=== PATIENT | male | born 1935 | race Two or more races ===

== ENCOUNTER 2017-03-01 19:22 | Inpatient (IN) | payer MEDICARE, MEDICAID ==
[~2017-03-01] VITALS: Ht 170.2 cm; Wt 92.1 kg
--- NOTE | 2017-03-01 19:24 | NUR ---
to bed 3 bib paramedics c/o sob, cough and congestion x10 days. lung sounds deminished with wheezing bilaterally on auscultation. pt aaox4, skin warm nondiaphoretic. place pt on cardiac monitoring, continuous pox, noted o2 sat 82% on ra, place pt on o2@4L/nc. er md at bedside to eval pt with orders received. will carry out orders. sl 18g to L forearm captain fire prevention bureau.
[2017-03-01] MEDS ORDERED: Magnesium 1GM/D5W 100ML PREMIX 200 ML IV ONE ×2 (19:26→19:39)
[2017-03-01] MEDS ORDERED: IPRATROPIUM NEB FS 0.5 MG/2.5 ML AMPUL.NEB ONE (19:26)
[2017-03-01] MEDS ORDERED: ALBUTEROL FS 2.5 MG/3 ML VIAL.NEB ONE (19:26)
--- NOTE | 2017-03-01 19:29 | NUR ---
rt at bedside to give hhn tx.
[2017-03-01] MEDS ORDERED: ALBUTEROL FS 2.5 MG/3 ML VIAL.NEB CONTNEB ONE (19:30)
[2017-03-01] MEDS ORDERED: IPRATROPIUM NEB FS 0.5 MG/2.5 ML AMPUL.NEB NEB ONE (19:30)
[2017-03-01] MEDS ORDERED: DEXAMETHASONE SOD PHOSPHATE 10 MG/ML VIAL IV ONE (19:30)
[2017-03-01] MEDS ORDERED: SECONDARY IV SET 1 EA INFUS.SET MC ONE (19:39)
[2017-03-01] MEDS ORDERED: DEXAMETHASONE SOD PHOSPHATE 10 MG/ML VIAL ONE (19:39)
[2017-03-01] MEDS ORDERED: IV SET PRIMARY 1 EA INFUS.SET MC ONE ×2 (19:39→20:35)
[2017-03-01 19:50] LABS: BASOPHILS # (AUTO) 0.7 /CMM (0.0-0.2); BASOPHILS % (AUTO) 3.7 % (0.0-2.0); EOSINOPHILS # (AUTO) 0.1 /CMM (0.0-0.7); EOSINOPHILS % (AUTO) 0.3 % (0.0-6.0); HEMATOCRIT 40 % (39-51); HEMOGLOBIN 13.2 g/dL (13.5-17.5); LYMPHOCYTES # (AUTO) 1.6 /CMM (0.8-4.8); LYMPHOCYTES % (AUTO) 8.9 % (20.0-44.0); MEAN CORPUSCULAR HEMOGLOBIN 28 PG (26.0-33.0); MEAN CORPUSCULAR HGB CONC 33 g/dl (31.0-36.0); MEAN CORPUSCULAR VOLUME 85 fL (80-96); MONOCYTES # (AUTO) 1.7 /CMM (0.1-1.30); NEUTROPHILS # (AUTO) 14.4 /CMM (1.8-8.9); NEUTROPHILS % (AUTO) 78.1 % (43.0-81.0); PLATELET COUNT (AUTO) 193 /CMM (150-450); RDW COEFFICIENT OF VARIATION 14.2 (11.5-15.0); RED BLOOD CELL COUNT(AUTO) 4.76 MIL/uL (4.5-6.0); WHITE BLOOD COUNT (AUTO) 18.5 K/uL (4.3-11.0)
[2017-03-01 19:51] LABS: CALCIUM, SERUM 8.9 mg/dL (8.5-10.1); CREATININE 0.9 mg/dL (0.6-1.3); POTASSIUM 4.1 mmol/L (3.5-5.1)
--- NOTE | 2017-03-01 19:54 | NUR ---
film processing supervisor magdy called for tele bed.
[2017-03-01 19:59] LABS: TROPONIN I 0.049 ng/mL (0.00-0.056)
--- NOTE | 2017-03-01 20:01 | NUR ---
pt family member at bedside.
[2017-03-01 20:11] LABS: LACTIC ACID 0.5 mmol/L (0.4-2.0)
--- NOTE | 2017-03-01 20:33 | NUR ---
pt pulled out piv, restarted on the L ac 18g.
[2017-03-01] MEDS ORDERED: PIPERACILLIN /TAZOBACTAM 3.375 G VIAL IV ONE (20:35)
--- NOTE | 2017-03-01 20:35 | NUR ---
report lucia to tele 1 zaid orourke. pending hospital admission.
--- NOTE | 2017-03-01 20:40 | NUR ---
ER PHYSICIAN ON THE PHONE WITH DR RIVERA.
[2017-03-01] MEDS ORDERED: RANI150T12 PO (20:50)
[2017-03-01] MEDS ORDERED: ISOS120T9 PO (20:50)
[2017-03-01] MEDS ORDERED: EZET10TA PO (20:50)
[2017-03-01] MEDS ORDERED: ASPI81TA2 PO (20:50)
[2017-03-01] MEDS ORDERED: RANO500T3 PO (20:50)
[2017-03-01] MEDS ORDERED: CARV25TA PO (20:50)
[2017-03-01] MEDS ORDERED: FURO-145 PO (20:50)
[2017-03-01] MEDS ORDERED: BUDE10.2 INH (20:50)
[2017-03-01] MEDS ORDERED: ROSU40TA PO (20:50)
[2017-03-01] MEDS ORDERED: AMLO5TAB2 PO (20:50)
[2017-03-01] MEDS ORDERED: PIPERACILLIN /TAZOBACTAM 3.375 G in IV D5W 50 ML IV ONE (21:00)
[2017-03-01 21:30] VITALS: BP 142/66
--- NOTE | 2017-03-01 21:30 | NUR ---
RN ADMITTING NOTES RECEIVED PATIENT FROM ER, ACCOMPANIED BY COPY CAMERA OPERATOR AND TECH, TRANSPORTED VIA GURNEY WITH ACLS PROTOCOLS. PATIENT ABLE TO AMBULATE TO BED, STEADY GAIT NOTED, STANDBY ASSIST PROVIDED FOR FALL PRECAUTIONS. PATIENT'S FAMILY AT BEDSIDE. PATIENT OBSERVED TO BE ALERT AND ORIENTED X3-4, BERMUDIAN SPEAKER. PATIENT DENIES ANY PAIN/DISCOMFORT. NOTED WITH PRODUCTIVE COUGH, PATIENT WITH DIFFICULTY CLEARING SECRETIONS, SOB WITH EXERTION. PLACED PATIENT ON 4LPM OF O2 VIA NC ENDORSED FROM ER. PATIENT SATURATING AT 94%. EXPIRATORY WHEEZING HEARD WITH AUSCULTATION THROUGHOUT LUNG LEWIS. PLACED PATIENT ON TELE, SR WITH HR OF 80. L AC G18, FLUSHED AND PATENT, NO SIGNS OF INFILTRATION. BODY CHECK DONE, FILED IN CHART. BELONGINGS LIST DONE, IN CHART. PATIENT ORIENTED TO UNIT PROTOCOLS, UPDATED WITH PLAN OF CARE; VERBALIZED UNDERSTANDING. PATIENT'S NEEDS ANTICIPATED AND MET. SAFETY AND COMFORT ENSURED. BED IN LOW AND LOCKED POSITION. BED ALARM IN PLACE FOR FALL PRECAUTIONS. CALL LIGHT IN REACH. PATIENT UNDER THE CARE OF STIVEN ONOFRE ON THE PHONE WITH MD; ORDERS GIVEN, NOTED AND CARRIED OUT.
[2017-03-01] MEDS ORDERED: FUROSEMIDE 20 MG/2 ML VIAL IV SCH (22:00)
[2017-03-01] MEDS ORDERED: FUROSEMIDE 20 MG/2 ML VIAL ONE (22:00)
[2017-03-01] MEDS ORDERED: CEFTRIAXONE 1 G in IV D5W 50 ML IV SCH (22:00)
[2017-03-01] MEDS ORDERED: CEFTRIAXONE 1 G VIAL ONE (22:00)
[2017-03-01] MEDS ORDERED: ENOXAPARIN SODIUM 40 MG/0.4 ML DISP.SYRIN SQ SCH (22:00)
[2017-03-01] MEDS ORDERED: CARVEDILOL 12.5 MG TABLET ONE (22:00)
[2017-03-01] MEDS ORDERED: ENOXAPARIN SODIUM 40 MG/0.4 ML DISP.SYRIN SQ ONE (22:01)
[2017-03-01] MEDS ORDERED: IV NS 0.9% 50 ML IV ONE (22:01)
[2017-03-01] MEDS ORDERED: IV SET PRIMARY PUMP SET 1 EA INFUS.SET MC ONE (22:01)
[2017-03-01] MEDS ORDERED: IV D5W 50 ML IV ONE (22:01)
[2017-03-01] MEDS ORDERED: methylPREDNISolone SOD SUCC 40 MG/ML VIAL ONE ×2 (22:06)
[2017-03-01] MEDS ORDERED: methylPREDNISolone SOD SUCC 125 MG/2ML VIAL ONE ×2 (22:20)
[2017-03-01] MEDS: CARVEDILOL 12.5 MG TABLET PO SCH (22:28)
[2017-03-01] MEDS ORDERED: methylPREDNISolone SOD SUCC 125 MG/2ML VIAL IV ONE (22:30)
[2017-03-01] MEDS: FUROSEMIDE 20 MG/2 ML VIAL IV SCH (22:30)
[2017-03-01] MEDS ORDERED: IPRATROPIUM NEB FS 0.5 MG/2.5 ML AMPUL.NEB NEB PRN (23:30)
[2017-03-01] MEDS ORDERED: ALBUTEROL FS 2.5 MG/3 ML VIAL.NEB NEB PRN (23:30)
[2017-03-02] VITALS: BP 135/56
[2017-03-02] MEDS: IPRATROPIUM NEB FS 0.5 MG/2.5 ML AMPUL.NEB NEB SCH ×4 (03:14→23:08)
[2017-03-02] MEDS ORDERED: ALBUTEROL FS 2.5 MG/3 ML VIAL.NEB NEB SCH ×2 (03:30→07:07)
[2017-03-02 04:00] VITALS: BP 140/58
--- NOTE | 2017-03-02 04:00 | NUR ---
RN NOTES PATIENT SLEEPING COMFORTABLY. NOTED PATIENT WITH EPISODE OF SB ON TELE, WITH LOWEST HR NOTED TO BE 53-54, NON SUSTAINING AND GOES BACK UP TO 60s. ALSO NOTED WITH OCCASIONAL, NON SUSTAINING PVC. PATIENT NOT IN ANY FORM OF DISTRESS. CALL LIGHT IN REACH.
[2017-03-02] MEDS ORDERED: PIPERACILLIN /TAZOBACTAM 3.375 G VIAL IV ONE (04:15)
[2017-03-02] MEDS ORDERED: IV NS 0.9% 50 ML IV ONE (04:15)
[2017-03-02] MEDS ORDERED: IV D5W 50 ML IV ONE (04:15)
[2017-03-02] MEDS ORDERED: IV SET PRIMARY PUMP SET 1 EA INFUS.SET MC ONE ×2 (04:16→11:11)
[2017-03-02] MEDS ORDERED: PIPERACILLIN /TAZOBACTAM 3.375 G in IV D5W 50 ML IV SCH (05:00)
--- NOTE | 2017-03-02 06:27 | NUR ---
RN CLOSING NOTES PATIENT IN BED, SLEEPING COMFORTABLY. PATIENT REMAINS ON 4LPM OF O2 VIA NC. RESPIRATION IS EVEN AND UNLABORED WITH NO DISTRESS. EXPIRATORY WHEEZING NOTED. PATIENT STILL HAVING DIFFICULTY CLEARING SECRETIONS, NOTED WITH SMALL AMOUNT OF THICK, YELLOW SPUTUM. PATIENT'S NEEDS ANTICIPATED AND MET. SAFETY AND COMFORT ENSURED. ALL DUE MEDS GIVEN ORDERED. AM LABS DRAWN. SAFETY AND COMFORT ENSURED. BED IN LOW AND LOCKED POSITION. WITH BED ALARM IN PLACE. ASSISTED WITH ADLS NEEDED. NEEDS ANTICIPATED AND MET. CALL LIGHT IN REACH. WILL ENDORSE ACCORDINGLY FOR CONTINUITY OF CARE. Addendum: 03/02/17 at 0629 by NUPUR PEDERSEN RN SR ON TELE WITH HR IN THE 68.
[2017-03-02 07:27] LABS: HEMATOCRIT 43 % (39-51); HEMOGLOBIN 13.8 g/dL (13.5-17.5); LYMPHOCYTES # (AUTO) 0.6 /CMM (0.8-4.8); LYMPHOCYTES % (AUTO) 4.5 % (20.0-44.0); MEAN CORPUSCULAR HEMOGLOBIN 28 PG (26.0-33.0); MEAN CORPUSCULAR HGB CONC 32 g/dl (31.0-36.0); MEAN CORPUSCULAR VOLUME 86 fL (80-96); MONOCYTES # (AUTO) 0.2 /CMM (0.1-1.30); MONOCYTES % (AUTO) 1.2 % (2.0-12.0); NEUTROPHILS # (AUTO) 12.5 /CMM (1.8-8.9); NEUTROPHILS % (AUTO) 94.3 % (43.0-81.0); PLATELET COUNT (AUTO) 183 /CMM (150-450); RDW COEFFICIENT OF VARIATION 14.9 (11.5-15.0); RED BLOOD CELL COUNT(AUTO) 4.99 MIL/uL (4.5-6.0); WHITE BLOOD COUNT (AUTO) 13.3 K/uL (4.3-11.0)
[2017-03-02] MEDS: ALBUTEROL FS 2.5 MG/3 ML VIAL.NEB NEB SCH ×3 (07:35→23:08)
[2017-03-02 08:00] VITALS: BP 159/62
--- NOTE | 2017-03-02 08:00 | NUR ---
TELE1/RN AM SHIFT INITIAL NOTES RECEIVED PT AWAKE SITTING IN BED, PT A/O X 3 ESTONIAN SPEAKING. NO ACUTE RESPIRATORY DISTRESS NOTED, BUT NOTED WHEEZING UPON AUSCULTATION OF LUNGS. ON 4L O2 VIA N/C SATURATING @ 93%. PT VERBALIZED FEELING BETTER THIS MORNING. IV SITE FLUSHED PATENT WITH NO S/S OF INFECTION. PT IS COMFORTABLE AT THIS TIME. SCHEDULED AM MEDS TO BE GIVEN. CL WITHIN REACHED AND SAFETY MAINTAINED. ON GOING MONITORING. Addendum: 03/02/17 at 1326 by MACKENZIE NAJERA RN ADDENDUM FOR 0800 NOTES: ON TELE WITH SINUS RHYTHM WITH BBB, HR 57.
[2017-03-02] MEDS: FUROSEMIDE 20 MG/2 ML VIAL IV SCH ×2 (08:34→21:28)
[2017-03-02] MEDS: CARVEDILOL 12.5 MG TABLET PO SCH ×2 (08:36→21:29)
[2017-03-02] MEDS: PANTOPRAZOLE 40 MG TABLET.DR PO SCH (08:37)
[2017-03-02] MEDS ORDERED: methylPREDNISolone SOD SUCC 125 MG/2ML VIAL IV ONE (09:00)
[2017-03-02] MEDS ORDERED: FUROSEMIDE 20 MG TABLET PO SCH (09:44)
[2017-03-02] MEDS ORDERED: CARVEDILOL 12.5 MG TABLET PO SCH (09:44)
[2017-03-02] MEDS ORDERED: FAMOTIDINE (20 MG) 20 MG TABLET PO SCH (09:46)
--- NOTE | 2017-03-02 10:15 | NUR ---
TELE1/RN HOME MEDS SPOKE TO PT'S SON TO BRING CRESTOR, SYMBACORT AND RANEXA. WILL BRING MEDS LATER TODAY.
[2017-03-02 10:46] LABS: CALCIUM, SERUM 9.1 mg/dL (8.5-10.1); POTASSIUM 4.2 mmol/L (3.5-5.1)
[2017-03-02] MEDS ORDERED: IV NS 0.9% 250 ML IV ONE (11:11)
[2017-03-02] MEDS ORDERED: SECONDARY IV SET 1 EA INFUS.SET MC ONE ×2 (11:12→22:31)
[2017-03-02] MEDS: ASPIRIN 81 MG TAB.CHEW PO SCH (11:33)
[2017-03-02] MEDS: PIPERACILLIN /TAZOBACTAM 3.375 G in IV D5W 50 ML IV SCH ×3 (11:33→22:34)
[2017-03-02] MEDS: AMLODIPINE BESYLATE 5 MG TABLET PO SCH (11:34)
[2017-03-02] MEDS: ISOSORBIDE MONONITRATE (30MG) 30 MG TAB.SR.24H PO SCH (11:34)
[2017-03-02 12:00] VITALS: BP 143/63
[2017-03-02 16:00] VITALS: BP 138/55
--- NOTE | 2017-03-02 16:00 | NUR ---
TELE1/RN AFTERNOON ROUNDS NO CHANGE OF CONDITION. MONITORING CONTINUED.
[2017-03-02] MEDS ORDERED: Medication Not On Formulary EA (Budesonide/Formoterol Fumarate (Symbicort 160-4.5 Mcg In INH SCH (17:00)
--- NOTE | 2017-03-02 19:30 | NUR ---
BIOPROCESSING MANUFACTURING TECHNICIAN INITIAL NOTES RECEIVED PATIENT WALKING AROUND IN ROOM IN STEADY GAIT. A/OX3, ABLE TO MAKE NEEDS KNOWN. RESPIRATIONS EVEN AND UNLABORED. DENIES SOB. DENIES PAIN OR DISCOMFORT. SKIN WARM AND DRY TO TOUCH. ON TELE MONITOR SINUS RHYTHM. WILL CONTINUE TO MONITOR.
[2017-03-02 20:00] VITALS: BP 124/80
--- NOTE | 2017-03-02 20:00 | NUR ---
TELE1/RN AM SHIFT END NOTES NO ACUTE CHANGE OF CONDITION NOTED DURING THE SHIFT. NEEDS MET. PT ENDORSED TO PM NURSE TO CONTINUE CARE. CL WITHIN REACHED AND SAFETY MAINTAINED.
[2017-03-02] MEDS: ENOXAPARIN SODIUM 40 MG/0.4 ML DISP.SYRIN SQ SCH (21:32)
[2017-03-02] MEDS: CEFTRIAXONE 1 G in IV D5W 50 ML IV SCH (22:34)
[2017-03-03] VITALS: BP 124/74
--- NOTE | 2017-03-03 00:37 | NUR ---
[facility] ONCE CLEARED FOR PATIENTS SAFETY
[2017-03-03 04:00] VITALS: BP 127/70
[2017-03-03] MEDS: PIPERACILLIN /TAZOBACTAM 3.375 G in IV D5W 50 ML IV SCH ×4 (04:41→22:40)
--- NOTE | 2017-03-03 07:00 | NUR ---
received pt in bed .A/O X3 ON N.C 3LPM,NO C/O PAIN ,NO S/S OF DISTRESS.BREATHING EVEN AND UNLABORED.SAFETY MEASURES IN PLACE,BED IN LOW AND LOCKED POSITION.WILL CONTINUE TO MONITOR FOR CHANGES.
[2017-03-03] MEDS: IPRATROPIUM NEB FS 0.5 MG/2.5 ML AMPUL.NEB NEB SCH ×3 (07:35→23:26)
[2017-03-03] MEDS: ALBUTEROL FS 2.5 MG/3 ML VIAL.NEB NEB SCH ×3 (07:35→23:26)
[2017-03-03 07:36] LABS: HEMATOCRIT 44 % (39-51); HEMOGLOBIN 14.1 g/dL (13.5-17.5); LYMPHOCYTES # (AUTO) 0.5 /CMM (0.8-4.8); LYMPHOCYTES % (AUTO) 2.5 % (20.0-44.0); MEAN CORPUSCULAR HEMOGLOBIN 28 PG (26.0-33.0); MEAN CORPUSCULAR HGB CONC 32 g/dl (31.0-36.0); MEAN CORPUSCULAR VOLUME 86 fL (80-96); MONOCYTES # (AUTO) 0.8 /CMM (0.1-1.30); MONOCYTES % (AUTO) 3.6 % (2.0-12.0); NEUTROPHILS % (AUTO) 93.9 % (43.0-81.0); PLATELET COUNT (AUTO) 238 /CMM (150-450); RDW COEFFICIENT OF VARIATION 14.7 (11.5-15.0); RED BLOOD CELL COUNT(AUTO) 5.03 MIL/uL (4.5-6.0); WHITE BLOOD COUNT (AUTO) 21.3 K/uL (4.3-11.0)
[2017-03-03 07:59] LABS: ALBUMIN 3.2 g/dL (3.4-5.0); BILIRUBIN,TOTAL 0.3 mg/dL (0.2-1.0); CALCIUM, SERUM 9.1 mg/dL (8.5-10.1); CREATININE 1.2 mg/dL (0.6-1.3); MAGNESIUM 2.3 mg/dL (1.8-2.4); POTASSIUM 4.1 mmol/L (3.5-5.1); TOTAL PROTEIN, SERUM 7.8 g/dL (6.4-8.2)
[2017-03-03 08:00] VITALS: BP 143/73
[2017-03-03] MEDS: AMLODIPINE BESYLATE 5 MG TABLET PO SCH (08:21)
[2017-03-03] MEDS: ASPIRIN 81 MG TAB.CHEW PO SCH (08:21)
[2017-03-03] MEDS: ISOSORBIDE MONONITRATE (30MG) 30 MG TAB.SR.24H PO SCH (08:21)
[2017-03-03] MEDS: PANTOPRAZOLE 40 MG TABLET.DR PO SCH (08:22)
[2017-03-03] MEDS: CARVEDILOL 12.5 MG TABLET PO SCH ×2 (08:23→21:18)
[2017-03-03] MEDS ORDERED: methylPREDNISolone SOD SUCC 125 MG/2ML VIAL IV ONE (09:00)
[2017-03-03] MEDS ORDERED: Medication Not On Formulary EA (Rosuvastatin Calcium (Crestor) 1 TAB) PO SCH (09:00)
[2017-03-03 10:22] LABS: ABG BASE EXCESS 7.7 mmol/L; ABG OXYGEN SATURATION 90.5 % (92.0-98.5); ABG PCO2 66.7 mmHg (35.0-45.0); ABG PH 7.348 (7.350-7.450); ABG TOTAL HEMOGLOBIN 14.3 G/dL (13.5-18.0); AaDO2 4.9 mmHg; COHb 0.9 % (0.5-1.5); MetHb 0.8 % (0.0-1.5); SITE, ABG Right Radial; VENT MODE, BG ROOM AIR
[2017-03-03 10:39] LABS: LYMPHOCYTES % (MANUAL) 6 % (16-48); MONOCYTES % (MANUAL) 3 % (0-11.0); NEUTROPHILS % (MANUAL) 91 (42-76); PLATELET ESTIMATE ADEQUATE
--- NOTE | 2017-03-03 11:25 | NUR ---
PT.D/C HOME WITH FAMILY .ALL M.D ORDERS CARRIED OUT.PT TEACHING AND DISCHARGE INSTRUCTIONS PROVIDED TO PATIENT.PT D/C WITH FAMILY Addendum: 03/03/17 at 1130 by DEBRA NELSON RN ERROR CHARTED TO WRONG PATIENT
[2017-03-03 12:00] VITALS: BP 120/64
[2017-03-03 16:00] VITALS: BP 127/62
--- NOTE | 2017-03-03 19:30 | NUR ---
CONCIERGE RECEPTIONIST INITIAL NOTE PT RECEIVED SITTING UP IN BED. A/O X4 AWAKE AND ALERT, VENEZUELAN SPEAKING AND ABLE TO MAKE SOME NEEDS KNOWN. TELE SINUS RHYTHM 60'S. IV LAC CLEAN AND INTACT, FLUSHING WELL. ALL SAFETY MEASURES IN PLACE. CALL LIGHT WITHIN EASY REACH AT ALL TIMES. WILL CONTINUE TO MONITOR.
[2017-03-03 20:00] VITALS: BP 128/71
[2017-03-03] MEDS: CEFTRIAXONE 1 G in IV D5W 50 ML IV SCH (21:17)
[2017-03-03] MEDS: ENOXAPARIN SODIUM 40 MG/0.4 ML DISP.SYRIN SQ SCH (21:19)
[2017-03-03] MEDS ORDERED: SOD FERRIC GLUC 125 MG in IV NS 0.9% 100 ML IV SCH (22:30)
[2017-03-03] MEDS ORDERED: SOD FERRIC GLUC 62.5 MG/5 ML AMPUL IV ONE (22:58)
[2017-03-03] MEDS ORDERED: IV NS 0.9% 100 ML IV ONE (23:01)
[2017-03-04] VITALS: BP 135/68
[2017-03-04] MEDS ORDERED: SECONDARY IV SET 1 EA INFUS.SET MC ONE ×2 (00:25→14:44)
[2017-03-04] MEDS ORDERED: IV NS 0.9% 250 ML IV ONE (02:43)
[2017-03-04 04:00] VITALS: BP 159/73
[2017-03-04] MEDS: PIPERACILLIN /TAZOBACTAM 3.375 G in IV D5W 50 ML IV SCH ×4 (05:05→23:41)
[2017-03-04 06:48] LABS: HEMATOCRIT 40 % (39-51); LYMPHOCYTES # (AUTO) 0.7 /CMM (0.8-4.8); LYMPHOCYTES % (AUTO) 4.1 % (20.0-44.0); MEAN CORPUSCULAR HEMOGLOBIN 28 PG (26.0-33.0); MEAN CORPUSCULAR HGB CONC 32 g/dl (31.0-36.0); MEAN CORPUSCULAR VOLUME 86 fL (80-96); MONOCYTES # (AUTO) 0.6 /CMM (0.1-1.30); MONOCYTES % (AUTO) 3.8 % (2.0-12.0); NEUTROPHILS % (AUTO) 92.1 % (43.0-81.0); PLATELET COUNT (AUTO) 224 /CMM (150-450); RDW COEFFICIENT OF VARIATION 14.4 (11.5-15.0); RED BLOOD CELL COUNT(AUTO) 4.68 MIL/uL (4.5-6.0); WHITE BLOOD COUNT (AUTO) 16.3 K/uL (4.3-11.0)
[2017-03-04 07:14] LABS: ALBUMIN 2.8 g/dL (3.4-5.0); BILIRUBIN,TOTAL 0.2 mg/dL (0.2-1.0); CALCIUM, SERUM 8.8 mg/dL (8.5-10.1); CREATININE 0.9 mg/dL (0.6-1.3); POTASSIUM 4.1 mmol/L (3.5-5.1); TOTAL PROTEIN, SERUM 6.7 g/dL (6.4-8.2)
--- NOTE | 2017-03-04 07:19 | NUR ---
HEAD GOLF PROFESSIONAL CLOSING NOTE PT REMAINED STABLE DURING SHIFT. ON 2L OF O2 AND SATING WELL. ALL SAFETY MEASURES IN PLACE. CALL LIGHT WITHIN EASY REACH AT ALL TIMES. WILL CONTINUE TO MONITOR.
[2017-03-04] MEDS: ALBUTEROL FS 2.5 MG/3 ML VIAL.NEB NEB SCH ×3 (07:22→20:10)
[2017-03-04] MEDS: IPRATROPIUM NEB FS 0.5 MG/2.5 ML AMPUL.NEB NEB SCH ×3 (07:22→20:10)
--- NOTE | 2017-03-04 07:23 | NUR ---
SUPERVISOR SULFURIC ACID PLANT OPENING RECEIVED PATIENT A/OX4 MONGOLIAN/GREENLANDIC SPEAKING ABLE TO COMMUNICATE NEEDS. PATIENT DENIES SOB, DIFFICULTY BREATHING AND 2L NC ON AT THIS TIME. WILL CHECK ROOM AIR SAT FOR PATIENT. PATIENT IS UP TO RESTROOM STATES NO NEEDS AT THIS TIME. CALL LIGHT IN REACH, BED LOWERED AND LOCKED, RAILS UPX3 FOR SAFETY AND WILL ROUND Q2H OR LESS PER NEEDS. PATIENT ASSISTED BACK TO BED IN POSITION OF COMFORT.
[2017-03-04 08:00] VITALS: BP 153/61
[2017-03-04] MEDS: ISOSORBIDE MONONITRATE (30MG) 30 MG TAB.SR.24H PO SCH (08:32)
[2017-03-04] MEDS: PANTOPRAZOLE 40 MG TABLET.DR PO SCH (08:33)
[2017-03-04] MEDS: ASPIRIN 81 MG TAB.CHEW PO SCH (08:33)
[2017-03-04] MEDS: AMLODIPINE BESYLATE 5 MG TABLET PO SCH (08:33)
--- NOTE | 2017-03-04 08:45 | NUR ---
WOUND CARE CONSULT: PT PRESENTS AMBULATORY WITH TAB SCORE OF 22. PT IS CONTINENT. LEFT ELBOW CALLUS NOTED. PT DENIES DISCOMFORT WITH CALLUS. WILL SEE PRN.
[2017-03-04] MEDS ORDERED: methylPREDNISolone SOD SUCC 125 MG/2ML VIAL IV ONE (09:00)
[2017-03-04] MEDS: CARVEDILOL 12.5 MG TABLET PO SCH ×2 (10:48→20:21)
[2017-03-04 12:00] VITALS: BP 105/69
[2017-03-04] MEDS ORDERED: Magnesium 1GM/D5W 100ML PREMIX 100 ML IV SCH (14:30)
[2017-03-04] MEDS: SOD FERRIC GLUC 125 MG in IV NS 0.9% 100 ML IV SCH (14:52)
--- NOTE | 2017-03-04 15:15 | NUR ---
TOMATO PASTE MAKER NOTES PER MD RIVERA OK TO CANCEL MAG REPLACEMENT YESTERDAYS WAS NORMAL VALUE
[2017-03-04 16:00] VITALS: BP 136/60
[2017-03-04] MEDS: methylPREDNISolone SOD SUCC 125 MG/2ML VIAL IV SCH ×2 (16:34→20:20)
--- NOTE | 2017-03-04 17:30 | NUR ---
OWEN RN NOTES NOTIFIED DR HOOPER OF CONSULTATION
--- NOTE | 2017-03-04 18:45 | NUR ---
RN CLOSING PATIENT STABLE NO COMPLICATIONS. ALL DUE MEDS GIVEN AND ALL NEEDS MET. PATIENT STATES NO NEEDS AT THIS TIME AND LEFT WITH CALL LIGHT IN REACH, BED LOWERED AND LOCKED, RAILS UPX3 FOR SAFETY AND WILL ENDORSE CARE TO RN. 3LPM NC ON PATIENT SATTING 92-94%
[2017-03-04 20:00] VITALS: BP_SYST 163; BP_SYST 172; BP_DIAS 74; BP_DIAS 82
[2017-03-04] MEDS: ENOXAPARIN SODIUM 40 MG/0.4 ML DISP.SYRIN SQ SCH (20:19)
[2017-03-04] MEDS: ATORVASTATIN 40 MG TABLET PO SCH (20:20)
--- NOTE | 2017-03-04 21:17 | NUR ---
MOLECULAR MODELER: RECEIVED PATIENT A/OX4 GEORGIAN/EQUATORIAL GUINEAN SPEAKING ABLE TO COMMUNICATE NEEDS. PATIENT DENIES SOB AND PAIN,ON 2L NC ON AT THIS TIME, BIPAP WILL BE AT 2100. PATIENT IS UP TO RESTROOM STATES NO NEEDS AT THIS TIME. CALL LIGHT IN REACH, BED LOWERED AND LOCKED, RAILS UPX3 FOR SAFETY AND WILL ROUND Q1H OR LESS PER NEEDS. PATIENT ASSISTED BACK TO BED IN POSITION OF COMFORT. KEEP MONITORING....
--- NOTE | 2017-03-04 21:40 | NUR ---
PT REFUSED BIPAP AT NIGHT. PLACED BACK TO 2L NC. NO RESPIRATORY DISTRESS AT THIS TIME. SPO2 92%. YUDI VILLEDA NOTIFIED.
--- NOTE | 2017-03-04 21:52 | NUR ---
RECOVERY RN: PT REFUSED TO HAVE BIPAP, EXPLAINED ALL RISKS AND BENEFITS OF BIPAP BY PRIMARY RN AND INTERPRETED BY ANOTHER RN/MICHELLE IN [facility], PT SAID"I AM OK I DON'T NEED ".PT STILL REFUSED. PER GRAPHIC TECHNICIAN BIPAP AT NIGHT ACCORDING TO ABG THIS MORNING PCO2 LEVEL 66, PO2 65. PT ON 2 L NASAL CANNULA SATURATING 92%, KEEP MONITORING.
[2017-03-05] VITALS (7 sets, daily range): BP systolic 116–145; BP diastolic 41–97
[2017-03-05] MEDS: IPRATROPIUM NEB FS 0.5 MG/2.5 ML AMPUL.NEB NEB SCH ×4 (02:10→19:56)
[2017-03-05] MEDS: ALBUTEROL FS 2.5 MG/3 ML VIAL.NEB NEB SCH ×4 (02:11→19:55)
[2017-03-05] MEDS: methylPREDNISolone SOD SUCC 125 MG/2ML VIAL IV SCH ×3 (04:54→21:01)
[2017-03-05] MEDS: PIPERACILLIN /TAZOBACTAM 3.375 G in IV D5W 50 ML IV SCH ×4 (04:54→22:42)
[2017-03-05] MEDS: PANTOPRAZOLE 40 MG TABLET.DR PO SCH (08:25)
[2017-03-05] MEDS: ASPIRIN 81 MG TAB.CHEW PO SCH (08:25)
[2017-03-05] MEDS: AMLODIPINE BESYLATE 5 MG TABLET PO SCH (08:25)
[2017-03-05] MEDS: CARVEDILOL 12.5 MG TABLET PO SCH ×2 (08:26→21:02)
[2017-03-05] MEDS: ISOSORBIDE MONONITRATE (30MG) 30 MG TAB.SR.24H PO SCH (08:26)
--- NOTE | 2017-03-05 09:45 | NUR ---
RN NOTES RECEIVED PATIENT ON BED A/OX4 TAJIK/ITALIAN SPEAKING ABLE TO COMMUNICATE NEEDS.RESPIRATION EVEN AND UNLABORED, ON O2 AT 2L O2 N/C , NO SOB NOTED , CALL LIGHT WITHIN EASY REACH , SR UP X3, BED IN LOW POSITION AND LOCKED, RAILS UPX3 FOR SAFETY. CONTINUE TO MONITOR PT CLOSELY AND NOTIFY MD FOR ANY SIGNIFICANT CHANGES .
--- NOTE | 2017-03-05 10:15 | NUR ---
RN NOTES DR RIVERA NOTIFIED THAT PT IS POSITIVE FOR DVT IN COMMON FEMORAL VEIN AND SUPERFICIAL FEMORAL VEIN . DR RIVERA STATED THAT THIS IS NOT SOMETHING NEW , KEEP PT ONE MORE DAY AND PT STARTED ON XARELTO 20 MG DAILY . Addendum: 03/05/17 at 1200 by TYSON WEAVER RN PT IS POSITIVE FOR DVT ON THE LEFT LEG.
[2017-03-05] MEDS ORDERED: IV SET PRIMARY PUMP SET 1 EA INFUS.SET MC ONE (13:33)
[2017-03-05] MEDS: SOD FERRIC GLUC 125 MG in IV NS 0.9% 100 ML IV SCH (13:33)
[2017-03-05] MEDS ORDERED: SOD FERRIC GLUC 125 MG in IV NS 0.9% 100 ML IV SCH (14:00)
[2017-03-05] MEDS ORDERED: RIVAROXABAN 10 MG TABLET PO SCH ×2 (17:00)
--- NOTE | 2017-03-05 18:12 | NUR ---
RN NOTES PT UP WALKING TO BATHROOM, VSS STABLE, TELE D/HARLEEN PER MD ORDER, PT MEDICATED PER MD ORDER , NO SIGNIFICANT CHANGES NOTED ON THIS SHIFT .
--- NOTE | 2017-03-05 19:40 | NUR ---
MS RN INITIAL NOTE PT RECEIVED AMBULATING IN ROOM. A/O X4 AND ABLE TO MAKE NEEDS KNOWN. ON 2-3L OF O2 VIA NC AND WELL TOLERATED. IV LRA #22SL PATENT, CLEAN, INTACT AND FLUSHING WELL. ALL SAFTY MEASURES IN PLACE. CALL LIGHT WITHIN REACH AT ALL TIMES. WILL CONTINUE TO MONITOR.
[2017-03-05] MEDS: ATORVASTATIN 40 MG TABLET PO SCH (21:01)
[2017-03-05] MEDS ORDERED: Ipratropium Bromide NEB ×2 (21:25)
[2017-03-05] MEDS ORDERED: CARV12.52 PO (21:25)
[2017-03-05] MEDS ORDERED: AMLO5TAB2 PO (21:25)
[2017-03-05] MEDS ORDERED: Methylprednisolone Sod Succ PO (21:25)
[2017-03-05] MEDS ORDERED: ASPI81TA2 PO (21:25)
[2017-03-05] MEDS ORDERED: ATOR40TA PO (21:25)
[2017-03-05] MEDS ORDERED: ALBUT2 NEB ×2 (21:25)
[2017-03-05] MEDS ORDERED: PANT40TA2 PO (21:25)
[2017-03-05] MEDS ORDERED: Isosorbide Mononitrate PO (21:25)
[2017-03-05] MEDS ORDERED: Rivaroxaban PO (21:25)
[2017-03-06] MEDS: ALBUTEROL FS 2.5 MG/3 ML VIAL.NEB NEB SCH ×3 (00:37→13:15)
[2017-03-06] MEDS: IPRATROPIUM NEB FS 0.5 MG/2.5 ML AMPUL.NEB NEB SCH ×3 (00:38→13:15)
[2017-03-06 04:00] VITALS: BP_SYST 149; BP_SYST 166; BP_DIAS 73; BP_DIAS 92
[2017-03-06 04:55] VITALS: BP 149/73
[2017-03-06] MEDS: methylPREDNISolone SOD SUCC 125 MG/2ML VIAL IV SCH ×2 (05:09→13:00)
[2017-03-06] MEDS: PIPERACILLIN /TAZOBACTAM 3.375 G in IV D5W 50 ML IV SCH ×2 (05:09→11:00)
--- NOTE | 2017-03-06 07:11 | NUR ---
RN NOTES PT IN STABLE CONDITION THROUGHOUT THE SHIFT. NO ACUTE RESP DISTRESS O2LPM VIA NC TOLERATED WELL SATING 98%. ALL NEEDS ATTENDED. NO ASE FROM IV ATB GIVEN ORDERED. AFEBRILE. VS MONITORED ORDERED. CALL LIGHT ANSWERED PROMPTLY. AND KEPT WITHIN EASY REACH. WILL ENDORSED CONTINUITY OF CARE TO AM NURSE
[2017-03-06 07:18] LABS: HEMATOCRIT 43 % (39-51); HEMOGLOBIN 13.6 g/dL (13.5-17.5); LYMPHOCYTES # (AUTO) 0.6 /CMM (0.8-4.8); LYMPHOCYTES % (AUTO) 4.6 % (20.0-44.0); MEAN CORPUSCULAR HEMOGLOBIN 28 PG (26.0-33.0); MEAN CORPUSCULAR HGB CONC 32 g/dl (31.0-36.0); MEAN CORPUSCULAR VOLUME 87 fL (80-96); MONOCYTES # (AUTO) 0.5 /CMM (0.1-1.30); NEUTROPHILS # (AUTO) 12.6 /CMM (1.8-8.9); NEUTROPHILS % (AUTO) 91.4 % (43.0-81.0); PLATELET COUNT (AUTO) 240 /CMM (150-450); RDW COEFFICIENT OF VARIATION 14.7 (11.5-15.0); RED BLOOD CELL COUNT(AUTO) 4.91 MIL/uL (4.5-6.0); WHITE BLOOD COUNT (AUTO) 13.8 K/uL (4.3-11.0)
[2017-03-06] MEDS: PANTOPRAZOLE 40 MG TABLET.DR PO SCH (07:30)
[2017-03-06 08:00] VITALS: BP 138/76
[2017-03-06 08:29] LABS: ALBUMIN 2.6 g/dL (3.4-5.0); BILIRUBIN,TOTAL 0.3 mg/dL (0.2-1.0); CALCIUM, SERUM 8.5 mg/dL (8.5-10.1); MAGNESIUM 2.2 mg/dL (1.8-2.4); POTASSIUM 4.8 mmol/L (3.5-5.1); TOTAL PROTEIN, SERUM 6.2 g/dL (6.4-8.2)
[2017-03-06] MEDS: ASPIRIN 81 MG TAB.CHEW PO SCH (09:00)
[2017-03-06] MEDS: ISOSORBIDE MONONITRATE (30MG) 30 MG TAB.SR.24H PO SCH (09:00)
[2017-03-06] MEDS: AMLODIPINE BESYLATE 5 MG TABLET PO SCH (09:00)
[2017-03-06] MEDS ORDERED: RIVAROXABAN 15 MG TABLET PO SCH (09:00)
[2017-03-06] MEDS: CARVEDILOL 12.5 MG TABLET PO SCH (09:00)
[2017-03-06 10:32] LABS: ABG BASE EXCESS 11.5 mmol/L; ABG OXYGEN SATURATION 89.3 % (92.0-98.5); ABG PCO2 60.4 mmHg (35.0-45.0); ABG PH 7.423 (7.350-7.450); ABG PO2 58.5 mmHg (75.0-100.0); ABG TOTAL HEMOGLOBIN 14.4 G/dL (13.5-18.0); AaDO2 18.9 mmHg; MetHb 0.9 % (0.0-1.5); O2Hb 87.6 % (94.0-97.0); SITE, ABG Right Radial; VENT MODE, BG ROOM AIR
--- NOTE | 2017-03-06 12:58 | NUR ---
PT. ROOM AIR SATURATION 85%.
[2017-03-06 13:52] VITALS: BP 152/68
[2017-03-06] MEDS: SOD FERRIC GLUC 125 MG in IV NS 0.9% 100 ML IV SCH (14:00)
--- NOTE | 2017-03-06 14:56 | NUR ---
PT. ROOM AIR SAT AT REST 85%.
--- NOTE | 2017-03-06 17:18 | NUR ---
patient noted alert and oriented.in a stable condition awaiting family member to pick him up.
== END 2017-03-06 18:22 | disposition home or self-care (01) | DRG 189 ==
LOC: ER 19:24 → TELE1 20:51 → TELE-TD 03-04 18:19 → TELE1 03-05 14:40 → MEDSG1 03-05 17:54
PROVIDERS: ADMIT Family Medicine; ATTEND Family Medicine
DX: J96.01 Acute respiratory failure with hypoxia (principal); I26.99 Other pulmonary embolism without acute cor pulmonale; J18.9 Pneumonia, unspecified organism; J44.0 Chronic obstructive pulmonary disease with (acute) lower respiratory infection; J44.1 Chronic obstructive pulmonary disease with (acute) exacerbation; I50.42 Chronic combined systolic (congestive) and diastolic (congestive) heart failure; I82.402 Acute embolism and thrombosis of unspecified deep veins of left lower extremity; J94.8 Other specified pleural conditions; E11.9 Type 2 diabetes mellitus without complications; E66.9 Obesity, unspecified; E78.5 Hyperlipidemia, unspecified; G47.33 Obstructive sleep apnea (adult) (pediatric); I11.0 Hypertensive heart disease with heart failure; I25.10 Atherosclerotic heart disease of native coronary artery without angina pectoris; I35.0 Nonrheumatic aortic (valve) stenosis; K21.9 Gastro-esophageal reflux disease without esophagitis; N40.0 Benign prostatic hyperplasia without lower urinary tract symptoms; T38.0X5A Adverse effect of glucocorticoids and synthetic analogues, initial encounter; Z79.01 Long term (current) use of anticoagulants; Z86.711 Personal history of pulmonary embolism; Z86.73 Personal history of transient ischemic attack (TIA), and cerebral infarction without residual deficits; Z87.891 Personal history of nicotine dependence; Z91.19 Patient's noncompliance with other medical treatment and regimen
CPT/HCPCS: 36415; 36600; 71010-TC; 71020-TC; 80048-TC; 80053-TC; 82962-TC; 83540-TC; 83605-TC; 83735-TC; 83880; 84484-TC; 85025-TC; 85378-TC; 87040-TC; 93307-TC; 93970-TC; 94799-TC; A4216; A4606; A6402; J0696; J1100; J1650; J1940; J2543; J2916; J2920; J2930; J3475; J7030; J7050; J7060; Z7610

== ENCOUNTER 2019-11-16 09:46 | Inpatient (IN) | payer MEDICARE, OTHER ==
[~2019-11-16] VITALS: Ht 170.2 cm; Wt 92.5 kg
[2019-11-16] VITALS (11 sets, daily range): BP systolic 90–120; BP diastolic 33–71
[~2019-11-16 09:46] MED LIST: AMLO5TAB9 PO; ASPI-1169 PO; ATOR40TA PO; BUDE10.2 INH; CARV12.52 PO; CARV25TA PO; FURO-145 PO; ISOS120T13 PO; Ipratropium Bromide NEB; Isosorbide Mononitrate PO; Methylprednisolone Sod Succ PO; PANT40TA2 PO; RANI-655 PO; RANO500T3 PO; ROSU40TA PO; Rivaroxaban PO
--- NOTE | 2019-11-16 09:48 | NUR ---
BIBRA 102 FRM HOME, C/O CP NON-RADIATING, AND SOB x 2DAYS ALBUTEROL GIVEN EN ROUTE. ALERT AND ORIENTED X3, LABORED BREATHING BUT STABLE TO MAINTAIN VIA O2 N/C. SATURATION 93%. RT AT BEDSIDE UPON ARRIVAL FOR PT. SKIN INTACT AND WARM TO TOUCH. WAITING TO BE SEEN BY
[2019-11-16] MEDS ORDERED: ALBUTEROL FS 2.5 MG/0.5 ML VIAL.NEB NEB ONE (10:00)
[2019-11-16] MEDS ORDERED: methylPREDNISolone SOD SUCC 125 MG/2ML VIAL IV ONE ×2 (10:00→15:30)
--- NOTE | 2019-11-16 10:15 | NUR ---
BREATHING TX PROVIDED FOR PT
[2019-11-16 10:17] LABS: BASOPHILS # (AUTO) 0.1 /CMM (0.0-0.2); BASOPHILS % (AUTO) 1.3 % (0.0-2.0); EOSINOPHILS % (AUTO) 0.3 % (0.0-6.0); HEMATOCRIT 38 % (39-51); HEMOGLOBIN 12.5 g/dL (13.5-17.5); LYMPHOCYTES # (AUTO) 1.2 /CMM (0.8-4.8); LYMPHOCYTES % (AUTO) 23.3 % (20.0-44.0); MEAN CORPUSCULAR HGB CONC 33 g/dl (31.0-36.0); MEAN CORPUSCULAR VOLUME 89 fL (80-96); MONOCYTES # (AUTO) 0.8 /CMM (0.1-1.30); MONOCYTES % (AUTO) 15.8 % (2.0-12.0); NEUTROPHILS # (AUTO) 3.1 /CMM (1.8-8.9); NEUTROPHILS % (AUTO) 59.3 % (43.0-81.0); PLATELET COUNT (AUTO) 151 /CMM (150-450); RED BLOOD CELL COUNT(AUTO) 4.26 MIL/uL (4.5-6.0); WHITE BLOOD COUNT (AUTO) 5.2 K/uL (4.3-11.0)
[2019-11-16] MEDS ORDERED: methylPREDNISolone SOD SUCC 125 MG/2ML VIAL ONE (10:17)
[2019-11-16 10:24] LABS: CREATININE 1.1 mg/dL (0.6-1.3); POTASSIUM 4.5 mmol/L (3.5-5.1)
[2019-11-16] MEDS ORDERED: FUROSEMIDE 40 MG/4 ML VIAL IV ONE (10:30)
[2019-11-16 10:38] LABS: ALBUMIN 3.2 g/dL (3.4-5.0); BILIRUBIN,DIRECT 0.2 mg/dL (0.0-0.2); BILIRUBIN,TOTAL 0.4 mg/dL (0.2-1.0); TOTAL PROTEIN, SERUM 6.5 g/dL (6.4-8.2)
[2019-11-16] MEDS ORDERED: FUROSEMIDE 40 MG/4 ML VIAL ONE (10:40)
[2019-11-16 10:58] LABS: BAND % (MANUAL) 1 % (0.0-5.0); EOSINOPHILS % (MANUAL) 2 % (0-4); LYMPHOCYTES % (MANUAL) 28 % (16-48); MONOCYTES % (MANUAL) 15 % (0-11.0); NEUTROPHILS % (MANUAL) 54 (42-76)
[2019-11-16] MEDS ORDERED: LINA290C PO (10:58)
[2019-11-16] MEDS ORDERED: TIOT18CA3 IH (10:58)
[2019-11-16] MEDS ORDERED: SACU1TAB PO (10:58)
[2019-11-16] MEDS ORDERED: EZET10TA32 PO (10:58)
[2019-11-16] MEDS ORDERED: BUPR100T5 PO (10:58)
[2019-11-16] MEDS ORDERED: FOLI0.8C2 PO (10:58)
[2019-11-16] MEDS ORDERED: TRAM50TA2 PO (10:58)
[2019-11-16] MEDS ORDERED: SPIR25TA6 PO (10:58)
[2019-11-16] MEDS ORDERED: BUME1TAB8 PO (10:58)
[2019-11-16] MEDS ORDERED: AMIT25TA9 PO (10:58)
[2019-11-16] MEDS ORDERED: DOCU-141 PO (10:58)
[2019-11-16] MEDS ORDERED: ASPIRIN 325 MG TABLET PO ONE (11:00)
[2019-11-16] MEDS ORDERED: NITROGLYCERIN PACKET 1 GM PACKET TD ONE (11:00)
[2019-11-16] MEDS ORDERED: ALBUTEROL FS 2.5 MG/3 ML VIAL.NEB NEB ONE (11:00)
[2019-11-16] MEDS ORDERED: NITROGLYCERIN PACKET 1 GM PACKET ONE (11:02)
[2019-11-16] MEDS ORDERED: ASPIRIN 325 MG TABLET ONE (11:02)
--- NOTE | 2019-11-16 11:04 | NUR ---
CALLED FELIPA FOR CONSULT.
--- NOTE | 2019-11-16 11:06 | NUR ---
PAGED DR. ESPINOSA.
--- NOTE | 2019-11-16 11:07 | NUR ---
CALLED NURSING SUPP FOR ICU BED.
--- NOTE | 2019-11-16 11:52 | NUR ---
NITRO NON ADMIT AND HELD SECONDARY TO LOW B/P
--- NOTE | 2019-11-16 12:11 | NUR ---
BED 261 ICU
--- NOTE | 2019-11-16 12:30 | NUR ---
REPORT GIVEN TO PATRICK TO CONTINUE CONTINUITY OF CARE
--- NOTE | 2019-11-16 12:31 | NUR ---
WILL TRANSFER PATIENT WHEN FINISHED
--- NOTE | 2019-11-16 12:31 | NUR ---
US TECH AT BEDSIDE
--- NOTE | 2019-11-16 13:30 | NUR ---
RN INITIAL NOTES RECEIVED PT AWAKE, A/OX4. FIJIAN SPEAKING BUT UNDERSTANDS TANZANIAN. AMBULATED TO BED WITH STEADY GAIT. NO RESPIRATORY DISTRESS. NO SOB NOTED. DENIES ANY PAIN. CONNECTED TO MONITOR. ON VIA NC AT 2LPM. IV LINES IN PLACE. PT CONTINENT, URINAL PROVIDED. SKIN INTACT. DR RIVERA PAGED FOR ADMISSION ORDERS. WILL CLOSELY MONITOR
--- NOTE | 2019-11-16 13:30 | NUR ---
transferred pt upstairs to room 262
[2019-11-16] MEDS: SPIRONOLACTONE 25 MG TABLET PO SCH ×2 (13:58→16:30)
--- NOTE | 2019-11-16 15:00 | NUR ---
RN NOTES CALLED DR RIVERA AGAIN FOR ADMISSION ORDERS. AWARE OF LAB VALUES IMAGING RESULTS. MEDICATIONS VERIFIED. ALL ADMISSION ORDERS NOTED AND CARRIED OUT. WILL CLOSELY MONITOR
[2019-11-16] MEDS ORDERED: methylPREDNISolone SOD SUCC 40 MG/ML VIAL IV SCH (15:30)
[2019-11-16] MEDS ORDERED: IPRATROPIUM NEB FS 0.5 MG/2.5 ML AMPUL.NEB NEB PRN (15:30)
[2019-11-16] MEDS: ALBUTEROL FS 2.5 MG/0.5 ML VIAL.NEB NEB SCH (16:15)
[2019-11-16 16:31] LABS: ABG BASE EXCESS 9.1 mmol/L; ABG OXYGEN SATURATION 92.2 % (92.0-98.5); ABG PCO2 66.2 mmHg (35.0-45.0); ABG PH 7.364 (7.350-7.450); ABG PO2 68.7 mmHg (75.0-100.0); AaDO2 52.8 mmHg; COHb 0.5 % (0.5-1.5); MetHb 0.5 % (0.0-1.5); O2Hb 91.3 % (94.0-97.0); SITE, ABG Right Brachial; VENT MODE, BG NASAL CANNULA
[2019-11-16] MEDS: DOCUSATE SODIUM 100 MG CAPSULE PO SCH (16:31)
[2019-11-16] MEDS: BUMETANIDE (1 MG) 1 MG TABLET PO SCH (16:31)
[2019-11-16] MEDS: TRAMADOL HCL 50 MG TABLET PO SCH (16:31)
[2019-11-16] MEDS: RIVAROXABAN 15 MG TABLET PO SCH (16:32)
[2019-11-16] MEDS ORDERED: RIVAROXABAN 15 MG TABLET PO SCH (17:00)
[2019-11-16] MEDS ORDERED: RIVAROXABAN 10 MG TABLET PO SCH (17:00)
--- NOTE | 2019-11-16 18:27 | NUR ---
RN CLOSING NOTES PT REMAINS A/OX4. ON 02 VIA NC AT 3LPM. NO RESPIRATORY DISTRESS NOTED. NO SOB NOTED. DENIES ANY PAIN. TOLERATED PO MEAL WELL. PT CONTINENT. KEPT CLEAN AND DRY. CALL LIGHT WITHIN REACH. WILL ENDORSE FOR CONTINUITY OF CARE.
--- NOTE | 2019-11-16 19:30 | NUR ---
RADIOLOGIST CHIEF OF BREAST IMAGING NOTE PATIENT RECEIVED IN BED A/O X 4 MOZAMBICAN SPEAKING, BUT ALSO UNDERSTANDS MAORI. PATIENT ON 2L O2 TOLERATING WELL. PATIENT DENIES CHEST PAIN/ SOB HR SR ON THE MONITOR. PATIENT HAS LAC AND RAC IV PATENT AND INTACT NO S/S OF INFECTION OR INFILTRATION. PLAN OF CARE AND GOALS DISCUSSED FOR TONIGHT. PATIENT VERBALIZE UNDERSTANDING. CALL LIGHT IN HAND. BED IN LOWEST LOCKED POSITION, SIDE RAILS UP X 2. RN WILL CONTINUE TO MONITOR FOR CHANGES.
[2019-11-16] MEDS: IPRATROPIUM NEB FS 0.5 MG/2.5 ML AMPUL.NEB NEB SCH (19:40)
[2019-11-16] MEDS: CARVEDILOL 12.5 MG TABLET PO SCH (20:25)
[2019-11-16] MEDS: AZITHROMYCIN 500 MG in IV D5W 250 ML IV SCH (20:40)
[2019-11-16] MEDS ORDERED: FUROSEMIDE 40 MG TABLET PO SCH (21:00)
--- NOTE | 2019-11-16 22:35 | NUR ---
CARPET LAYER HELPER NOTE SPOKE TO GRAND DAUGHTER ABOUT PATIENT MEDICATIONS. GRAND DAUGHTER ABLE TO DROP OFF THE 4 MEDS PHARMACY CAN NOT PROVIDE
--- NOTE | 2019-11-16 23:32 | NUR ---
FIXTURE RELAMPER NOTE GRAND DAUGHTER ARRIVED AND DROPPED OF MEDICINE. PATIENT AWAKE A/O X 4 CONVERSING WITH FAMILY. NO S.S OF DISTRESS. NO CHANGES IN CONDITION NOTED
[2019-11-17] VITALS (18 sets, daily range): BP systolic 77–127; BP diastolic 42–66
[2019-11-17] MEDS: ALBUTEROL FS 2.5 MG/0.5 ML VIAL.NEB NEB SCH ×5 (01:12→23:30)
[2019-11-17] MEDS: IPRATROPIUM NEB FS 0.5 MG/2.5 ML AMPUL.NEB NEB SCH ×5 (01:12→20:04)
--- NOTE | 2019-11-17 07:20 | NUR ---
RN INITIAL NOTES RECEIVED PT AWAKE, A/OX4. ON 02 VIA NH. NO RESPIRATORY DISTRESS NOTED. NO SOB NOTED. DENIES ANY PAIN. PT CONTINENT. COMFORTABLE. CALL LIGHT WITHIN REACH. WILL MONITOR
[2019-11-17 07:49] LABS: BASOPHILS % (AUTO) 0.3 % (0.0-2.0); EOSINOPHILS % (AUTO) 0.1 % (0.0-6.0); HEMATOCRIT 37 % (39-51); HEMOGLOBIN 12.3 g/dL (13.5-17.5); LYMPHOCYTES # (AUTO) 0.7 /CMM (0.8-4.8); LYMPHOCYTES % (AUTO) 6.2 % (20.0-44.0); MEAN CORPUSCULAR HGB CONC 33 g/dl (31.0-36.0); MEAN CORPUSCULAR VOLUME 88 fL (80-96); MONOCYTES # (AUTO) 0.6 /CMM (0.1-1.30); MONOCYTES % (AUTO) 5.2 % (2.0-12.0); NEUTROPHILS # (AUTO) 10.1 /CMM (1.8-8.9); NEUTROPHILS % (AUTO) 88.2 % (43.0-81.0); PLATELET COUNT (AUTO) 156 /CMM (150-450); RED BLOOD CELL COUNT(AUTO) 4.24 MIL/uL (4.5-6.0); WHITE BLOOD COUNT (AUTO) 11.5 K/uL (4.3-11.0)
[2019-11-17 07:57] LABS: CARBON DIOXIDE 38 mmol/L (21-32); CHLORIDE 97 mmol/L (98-107); CREATININE 1.3 mg/dL (0.6-1.3); GLUCOSE 199 mg/dL (74-106); POTASSIUM 4.2 mmol/L (3.5-5.1); SODIUM SERUM 140 mmol/L (136-145); UREA NITROGEN, BLOOD 26 mg/dL (7-18)
[2019-11-17 08:03] LABS: ALANINE AMINOTRANSFERASE 18 U/L (12-78); ALKALINE PHOSPHATASE 60 U/L (46-116); ASPARTATE AMINOTRANSFERASE 17 U/L (15-37); BILIRUBIN,TOTAL 0.4 mg/dL (0.2-1.0); MAGNESIUM 1.8 mg/dL (1.8-2.4); TOTAL PROTEIN, SERUM 6.4 g/dL (6.4-8.2)
[2019-11-17] MEDS: RAMIPRIL 5 MG CAPSULE PO SCH (08:24)
[2019-11-17] MEDS: BUMETANIDE (1 MG) 1 MG TABLET PO SCH ×2 (08:24→16:33)
[2019-11-17] MEDS: buPROPion SR 100 MG TABLET.ER PO SCH (08:24)
[2019-11-17] MEDS: ASPIRIN 81 MG TAB.CHEW PO SCH (08:25)
[2019-11-17] MEDS: PANTOPRAZOLE 40 MG TABLET.DR PO SCH (08:25)
[2019-11-17] MEDS: FUROSEMIDE 40 MG TABLET PO SCH ×2 (08:25→20:40)
[2019-11-17] MEDS: EZETIMIBE 10 MG TABLET PO SCH (08:25)
[2019-11-17] MEDS: TRAMADOL HCL 50 MG TABLET PO SCH ×2 (08:25→16:36)
[2019-11-17] MEDS: AMITRIPTYLINE HCL 25 MG TABLET PO SCH (08:25)
[2019-11-17] MEDS: SPIRONOLACTONE 25 MG TABLET PO SCH ×2 (08:25→16:36)
[2019-11-17] MEDS: DOCUSATE SODIUM 100 MG CAPSULE PO SCH (08:25)
[2019-11-17 08:26] LABS: IRON, SERUM 29 ug/dl (50-175); TOTAL IRON BINDING CAPACITY 209 ug/dl (250-450)
[2019-11-17] MEDS: RIVAROXABAN 15 MG TABLET PO SCH ×2 (08:33→16:37)
[2019-11-17 08:50] LABS: THYROID STIMULATING HORMONE 0.641 uIU/mL (0.358-3.74)
[2019-11-17] MEDS ORDERED: methylPREDNISolone SOD SUCC 125 MG/2ML VIAL IV ONE (09:00)
[2019-11-17] MEDS: CARVEDILOL 12.5 MG TABLET PO SCH ×2 (09:08→20:43)
[2019-11-17] MEDS: AMLODIPINE BESYLATE 5 MG TABLET PO SCH (09:09)
--- NOTE | 2019-11-17 09:30 | NUR ---
RN NOTES SEEN AND EXAMINED BY DR RIVERA. AWARE OF LAB VALUES. PT ON 02 VIA NC. NO RESPIRATORY DISTRESS NOTED. DENIES ANY PAIN. CLEAR TO DOWNGRADE TO TELE. WILL CONTINUE TO MONITOR Addendum: 11/17/19 at 1527 by PADMA SPRAGUE RN [phone] DR RIVERA AWARE OF LACTIC ACID 2.6. NO ORDER MADE 1000 CALLED IMAGING EXCHANGE TO AMEND DOPPLER RESULT LAST 2016 TO LATEST ONE.
[2019-11-17] MEDS: Magnesium 1GM/D5W 100ML PREMIX 100 ML IV SCH ×2 (10:24→11:30)
--- NOTE | 2019-11-17 15:26 | NUR ---
RN NOTES PT TRANSFERRED TO ROOM 328-1. PT A/OX4. ON 02 VIA NC. NO RESPIRATORY DISTRESS NOTED. NO SOB NOTED. DENIES ANY PAIN. PT IN STABLE CONDITION. YUDI RAMIREZ TOOK OVER PT'S CARE.
--- NOTE | 2019-11-17 15:50 | NUR ---
RESERVATIONS SPECIALIST NOTES RECEIVED PATIENT (TRANSFER) FROM ICU AT 1525 WITH DIAGNOSIS OF CHF. PATIENT AWAKE, A/O X 4, STABLE, ON O2 LMP NC, MILD SOB NOTED WITH ACTIVITY. PATIENT ON EXTERNAL CARDIAC MONITORING WITH READING OF SR WITH BBB IN THE 60S. PATIENT REPORTS GENERALIZED PAIN. LAC GAUGE # 18 INTACT AND FLUSHING WELL. NO SIGNS OF INFILTRATION AT THIS TIME. HOB ELEVATED AT 35 DEGREES. SAFETY PRECAUTIONS IN PLACE: BED IN LOW POSITION AND LOCKED, RAILS UP X 2, CALL LIGHT WITHIN REACH. WILL CONTINUE TO MONITOR PATIENT AND FOLLOW THE BETHANY.
[2019-11-17] MEDS: DOCUSATE SODIUM 250 MG CAPSULE PO SCH (16:45)
--- NOTE | 2019-11-17 18:36 | NUR ---
POST TRONIC MACHINE OPERATOR CLOSING NOTES PATIENT CURRENTLY AWAKE AND TALKING TO HIS SON WHO IS AT THE BEDSIDE. A/O X 4, AND COOPERATIVE. PATIENT IS ON O2 AT 2LPM NC. BREATHING EVENLY WITH MILD SOB NOTED WITH AMBULATION. PATIENT ON EXTERNAL CARDIAC MONITORING WITH READING OF SR WITH BBB IN THE LOW 60S. PATIENT CAN VERBALIZE HIS NEEDS AND MAKE THEM KNOWN. PATIENT DENIES PAIN AT THIS TIME. LAC GAUGE # 18 PRESENT AND INTACT. NO SIGNS OF INFILTRATION OR REDNESS. ALL NEEDS MET. SAFETY PRECAUTIONS IN PLACE: BED IN LOW POSITION AND LOCKED, HOB ELEVATED AT 35 DEGREES, RAILS UP X2, CALL LIGHT WITHIN REACH. WILL ENDORSE TO POWER BENDER OPERATOR NURSE
--- NOTE | 2019-11-17 19:05 | NUR ---
BRYOLOGIST OPENING NOTES RECEIVED PATIENT IN BED AWAKE ALERT AND ORIENTED X4, RESPIRATIONS EVEN AND UNLABORED WITH EQUAL RISE AND FALL OF CHEST, DENIES ANY PAIN OR DISCOMFORT AT THIS TIME, ON 2 L VIA NC TOLERATING WELL, IV SITE TO LEFT AC #18 G INTACT AND PATENT, NO REDNESS, NO INFILTRATION PRESENT, ORIENTED TO STAFF AND CALL LIGHT AND KEPT WITHIN REACH, ALL NEEDS ATTENDED AT THIS TIME, WILL CONTINUE TO MONITOR AND ATTEND TO NEEDS.
[2019-11-17] MEDS: AZITHROMYCIN 500 MG in IV D5W 250 ML IV SCH (20:38)
[2019-11-18] VITALS: BP 88/54
[2019-11-18 01:00] VITALS: BP 111/64
[2019-11-18] MEDS: IPRATROPIUM NEB FS 0.5 MG/2.5 ML AMPUL.NEB NEB SCH ×4 (01:57→20:27)
[2019-11-18 04:00] VITALS: BP 122/66
[2019-11-18 04:30] VITALS: BP 122/66
--- NOTE | 2019-11-18 06:38 | NUR ---
CARBURIZING FURNACE OPERATOR CLOSING NOTES PATIENT IN BED AWAKE ALERT AND ORIENTED X4, RESPIRATIONS EVEN AND UNLABORED WITH EQUAL RISE AND FALL OF CHEST, DENIES ANY PAIN OR DISCOMFORT AT THIS TIME, ON 2 L VIA NC TOLERATING WELL, IV SITE TO LEFT AC #18 G INTACT AND PATENT, NO REDNESS, NO INFILTRATION PRESENT, PATIENT REFUSED BIPAP AT NIGHT, CALL LIGHT KEPT WITHIN REACH, ALL NEEDS ATTENDED AT THIS TIME, WILL CONTINUE TO MONITOR AND ATTEND TO NEEDS AND ENDORSE TO NEXT SHIFT,REMAINS COMFORTABLE AT THIS TIME.
--- NOTE | 2019-11-18 07:20 | NUR ---
PIT SHOVELER OPENING NOTES RECEIVED PATIENT IN BED ASLEEP, AROUSABLE TO VERBAL AND TACTILE STIMULI. NO SOB. DENIES ANY PAIN OR DISCOMFORT AT THIS TIME. ON 2 L/MIN VIA NC TOLERATING WELL. LEFT AC #18 G INTACT AND PATENT. BED IN LOWEST POSITION, LOCKED. BED ALARM ON, CALL LIGHT WITHIN REACH. BED SIDERAILS UP X2.
--- NOTE | 2019-11-18 07:21 | NUR ---
MAYELIN RN NOTES ON TELE MONITORING SR WITH BBB HR: 65
[2019-11-18] MEDS: ALBUTEROL FS 2.5 MG/0.5 ML VIAL.NEB NEB SCH ×3 (07:52→22:37)
[2019-11-18 07:58] LABS: BASOPHILS % (AUTO) 0.1 % (0.0-2.0); HEMATOCRIT 40 % (39-51); HEMOGLOBIN 13.1 g/dL (13.5-17.5); MEAN CORPUSCULAR HGB CONC 33 g/dl (31.0-36.0); MEAN CORPUSCULAR VOLUME 88 fL (80-96); MONOCYTES # (AUTO) 0.7 /CMM (0.1-1.30); NEUTROPHILS % (AUTO) 89.9 % (43.0-81.0); PLATELET COUNT (AUTO) 178 /CMM (150-450); RED BLOOD CELL COUNT(AUTO) 4.57 MIL/uL (4.5-6.0); WHITE BLOOD COUNT (AUTO) 16.7 K/uL (4.3-11.0)
[2019-11-18 08:00] VITALS: BP 120/101
[2019-11-18 08:27] LABS: CARBON DIOXIDE 39 mmol/L (21-32); CHLORIDE 97 mmol/L (98-107); POTASSIUM 4.4 mmol/L (3.5-5.1); SODIUM SERUM 140 mmol/L (136-145)
[2019-11-18 08:28] LABS: ALANINE AMINOTRANSFERASE 25 U/L (12-78); ALBUMIN 3.2 g/dL (3.4-5.0); ALKALINE PHOSPHATASE 69 U/L (46-116); ASPARTATE AMINOTRANSFERASE 20 U/L (15-37); B-TYPE NATRIURETIC PEPTIDE 1234 PG/ML (0-125); BILIRUBIN,TOTAL 0.3 mg/dL (0.2-1.0); CREATININE 1.2 mg/dL (0.6-1.3); GLUCOSE 137 mg/dL (74-106); TOTAL PROTEIN, SERUM 6.9 g/dL (6.4-8.2); UREA NITROGEN, BLOOD 33 mg/dL (7-18)
[2019-11-18] MEDS: ASPIRIN 81 MG TAB.CHEW PO SCH (08:37)
[2019-11-18] MEDS: BUMETANIDE (1 MG) 1 MG TABLET PO SCH ×2 (08:37→16:44)
[2019-11-18] MEDS: FUROSEMIDE 40 MG TABLET PO SCH ×2 (08:37→22:09)
[2019-11-18] MEDS: EZETIMIBE 10 MG TABLET PO SCH (08:37)
[2019-11-18] MEDS: DOCUSATE SODIUM 250 MG CAPSULE PO SCH ×2 (08:37→16:48)
[2019-11-18] MEDS: AMITRIPTYLINE HCL 25 MG TABLET PO SCH (08:37)
[2019-11-18] MEDS: PANTOPRAZOLE 40 MG TABLET.DR PO SCH (08:37)
[2019-11-18] MEDS: SPIRONOLACTONE 25 MG TABLET PO SCH ×2 (08:37→16:47)
[2019-11-18] MEDS: AMLODIPINE BESYLATE 5 MG TABLET PO SCH (08:38)
[2019-11-18] MEDS: TRAMADOL HCL 50 MG TABLET PO SCH ×2 (08:38→16:46)
[2019-11-18] MEDS: CARVEDILOL 12.5 MG TABLET PO SCH ×2 (08:39→22:09)
[2019-11-18] MEDS: RIVAROXABAN 15 MG TABLET PO SCH ×2 (08:43→16:47)
[2019-11-18] MEDS: RAMIPRIL 5 MG CAPSULE PO SCH (08:51)
[2019-11-18] MEDS: Magnesium 1GM/D5W 100ML PREMIX 100 ML IV SCH ×2 (08:55→10:28)
[2019-11-18] MEDS ORDERED: methylPREDNISolone SOD SUCC 40 MG/ML VIAL IV SCH (09:00)
[2019-11-18] MEDS: buPROPion SR 100 MG TABLET.ER PO SCH (09:45)
[2019-11-18] MEDS: CEFTRIAXONE 1 G in IV D5W 50 ML IV SCH (11:38)
[2019-11-18] MEDS: Ranolazine (Ranexa) PO SCH ×2 (11:55→16:48)
[2019-11-18] MEDS: ROSUVASTATIN CALCIUM 40 MG PO SCH (11:55)
[2019-11-18] MEDS: Sacubitril/Valsartan (Entresto 24 mg-26 mg Tablet) PO SCH ×2 (11:55→16:48)
[2019-11-18] MEDS ORDERED: SOD FERRIC GLUC 125 MG in IV NS 0.9% 100 ML IV SCH (14:00)
--- NOTE | 2019-11-18 15:23 | NUR ---
MS RN NOTES RECEIVED FERLICIT FROM PHARMACY, ADMINISTERED
--- NOTE | 2019-11-18 19:30 | NUR ---
MS RN CLOSING NOTES ALERT AND AWAKE ORIENTED X4. NO SOB. DENIES ANY PAIN OR DISCOMFORT AT THIS TIME. ON 2 L/MIN VIA NC TOLERATING WELL. AMBULATORY WITH STEADY GAIT. LEFT AC #18 G INTACT AND PATENT. BED IN LOWEST POSITION, LOCKED. BED ALARM ON, CALL LIGHT WITHIN REACH. BED SIDERAILS UP X2.
[2019-11-18 20:00] VITALS: BP 126/59
--- NOTE | 2019-11-18 20:46 | NUR ---
ultram reassessment documentation not done past due outside of range Addendum: 11/18/19 at 2046 by NIKOLAI PAULA RN from 11/16/19 Addendum: 11/18/19 at 2047 by NIKOLAI PAULA RN actually due today at 1756 patient reports pain level less then 3 currently
--- NOTE | 2019-11-18 22:54 | NUR ---
called dr. bragg reguasenaiting patient request for albuterol treatments via [employer] or grade school teacher recoomends albuterol q6hr prn nebulizer exchange unable to get ahold of linda mckoy cell is [phone]
--- NOTE | 2019-11-18 23:10 | NUR ---
spoke with dr. llanes informed patient requesting to take home medication symbicort. new order for o,k for patient to use home medication recieved. clarified orders for breathing treatments.
[2019-11-18] MEDS ORDERED: ALBUTEROL FS 2.5 MG/0.5 ML VIAL.NEB NEB PRN (23:30)
[2019-11-18] MEDS ORDERED: IPRATROPIUM NEB FS 0.5 MG/2.5 ML AMPUL.NEB NEB PRN (23:30)
[2019-11-19] MEDS: ALBUTEROL FS 2.5 MG/0.5 ML VIAL.NEB NEB SCH ×3 (01:30→13:01)
[2019-11-19] MEDS: IPRATROPIUM NEB FS 0.5 MG/2.5 ML AMPUL.NEB NEB SCH ×3 (01:30→13:01)
--- NOTE | 2019-11-19 06:15 | NUR ---
MS RN CLOSING NOTES ALERT AND AWAKE ORIENTED X4. PT DENIES SOB. ON 3 L/MIN VIA NC TOLERATING WELL. LEFT AC #18 G INTACT AND PATENT. BED IN LOWEST POSITION, LOCKED. BED ALARM ON, CALL LIGHT WITHIN REACH. BED SIDERAILS UP X2.
--- NOTE | 2019-11-19 06:45 | NUR ---
PATIENT REFUSED AM. LAB DRAW. MACHINE SHOP INSTRUCTOR STATES THAT PATIENT REFUSED AM BLOOD DRAW. WILL ENDORSE TO ONCOMING SHIFT.
--- NOTE | 2019-11-19 07:20 | NUR ---
MS RN OPENING NOTES RECEIVED PATIENT IN BED ALERT AND AWAKE ORIENTED X4. NO S/S OF RESPIRATORY DISTRESS.DENIES ANY C/O PAIN NOR DISCOMFORT AT THIS TIME. LEFT AC # 18 INTACT AND PATENT. BED IN LOWEST POSITION, LOCKED. AMBULATORY WITH STEADY GAIT. BRP. ABLE TO VERBALIZE NEEDS. CALL LIGHT WITHIN REACH. BED SIDERAILS UPX2.
[2019-11-19 08:00] VITALS: BP 116/59
[2019-11-19] MEDS: SPIRONOLACTONE 25 MG TABLET PO SCH (08:39)
[2019-11-19] MEDS: PANTOPRAZOLE 40 MG TABLET.DR PO SCH (08:39)
[2019-11-19] MEDS: DOCUSATE SODIUM 250 MG CAPSULE PO SCH (08:40)
[2019-11-19] MEDS: RAMIPRIL 5 MG CAPSULE PO SCH (08:40)
[2019-11-19] MEDS: BUMETANIDE (1 MG) 1 MG TABLET PO SCH (08:40)
[2019-11-19] MEDS: ASPIRIN 81 MG TAB.CHEW PO SCH (08:40)
[2019-11-19] MEDS: CARVEDILOL 12.5 MG TABLET PO SCH (08:41)
[2019-11-19] MEDS: Ranolazine (Ranexa) PO SCH (08:41)
[2019-11-19] MEDS: AMITRIPTYLINE HCL 25 MG TABLET PO SCH (08:41)
[2019-11-19] MEDS: ROSUVASTATIN CALCIUM 40 MG PO SCH (08:41)
[2019-11-19] MEDS: FUROSEMIDE 40 MG TABLET PO SCH (08:42)
[2019-11-19] MEDS: Sacubitril/Valsartan (Entresto 24 mg-26 mg Tablet) PO SCH (08:42)
[2019-11-19] MEDS: TRAMADOL HCL 50 MG TABLET PO SCH (08:43)
[2019-11-19] MEDS: buPROPion SR 100 MG TABLET.ER PO SCH (08:43)
[2019-11-19] MEDS: EZETIMIBE 10 MG TABLET PO SCH (08:44)
[2019-11-19] MEDS: RIVAROXABAN 15 MG TABLET PO SCH (08:44)
[2019-11-19] MEDS ORDERED: EZET10TA32 PO (08:52)
[2019-11-19] MEDS ORDERED: ASPI-1169 PO (08:52)
[2019-11-19] MEDS ORDERED: PANT40TA2 PO (08:52)
[2019-11-19] MEDS ORDERED: AMLO5TAB9 PO (08:52)
[2019-11-19] MEDS ORDERED: RANO500T3 PO (08:52)
[2019-11-19] MEDS ORDERED: CARV12.52 PO (08:52)
[2019-11-19] MEDS ORDERED: AMIT25TA9 PO (08:52)
[2019-11-19] MEDS ORDERED: BUME1TAB8 PO (08:52)
[2019-11-19] MEDS ORDERED: BUDE10.2 INH (08:52)
[2019-11-19] MEDS ORDERED: BUPR100T5 PO (08:52)
[2019-11-19] MEDS ORDERED: Ipratropium Bromide NEB (08:52)
[2019-11-19] MEDS ORDERED: LINA290C PO (08:52)
[2019-11-19] MEDS ORDERED: SACU1TAB PO (08:52)
[2019-11-19] MEDS ORDERED: TIOT18CA3 IH (08:52)
[2019-11-19] MEDS ORDERED: SPIR25TA6 PO (08:52)
[2019-11-19] MEDS ORDERED: ATOR40TA PO (08:52)
[2019-11-19] MEDS ORDERED: DOCU-141 PO (08:52)
[2019-11-19] MEDS ORDERED: TRAM50TA2 PO (08:52)
[2019-11-19] MEDS ORDERED: Rivaroxaban PO (08:52)
[2019-11-19 08:53] VITALS: BP 116/59
[2019-11-19] MEDS: AMLODIPINE BESYLATE 5 MG TABLET PO SCH (08:53)
[2019-11-19] MEDS ORDERED: AZITHROMYCIN 500 MG in IV D5W 250 ML IV ONE (09:00)
[2019-11-19] MEDS ORDERED: AZITHROMYCIN 250 MG TABLET PO ONE (09:00)
[2019-11-19] MEDS: CEFTRIAXONE 1 G in IV D5W 50 ML IV SCH (11:00)
--- NOTE | 2019-11-19 14:00 | NUR ---
MS RN CLOSING NOTES ALERT AND ORIENTED X4. NO S/S OF RESPIRATORY DISTRESS. DENIES ANY C/O PAIN NOR DISCOMFORT AT THIS TIME. IV ACCESS CATHETER REMOVED WITH CATHETER TIP INTACT. DISCHARGE INSTRUCTIONS GIVEN TO PATIENT'S SON ALONG WITH EDUCATION AND DISCHARGE PACKET. DISCHARGE INSTRUCTIONS ALSO GIVEN VIA PHONE TO MARY ANN (GRANDDAUGHTER). AMBULATORY WITH STEADY GAIT. PATIENT'S SON BROUGHT PORTABLE O2 FOR PATIENT. ALL BELONGINGS ACCOUNTED FOR. PATIENT LEFT IN STABLE CONDITION.
== END 2019-11-19 14:00 | disposition home health service (06) | DRG 280 ==
LOC: ER 09:48 → ICU 12:12 → TELE 11-17 15:21 → MED 11-18 09:23
PROVIDERS: ADMIT Family Medicine; ATTEND Family Medicine
DX: I21.4 Non-ST elevation (NSTEMI) myocardial infarction (principal); J96.01 Acute respiratory failure with hypoxia; N17.0 Acute kidney failure with tubular necrosis; J18.9 Pneumonia, unspecified organism; J44.1 Chronic obstructive pulmonary disease with (acute) exacerbation; E66.2 Morbid (severe) obesity with alveolar hypoventilation; I13.0 Hypertensive heart and chronic kidney disease with heart failure and stage 1 through stage 4 chronic kidney disease, or unspecified chronic kidney disease; I82.412 Acute embolism and thrombosis of left femoral vein; J94.8 Other specified pleural conditions; E87.2 Acidosis; J44.0 Chronic obstructive pulmonary disease with (acute) lower respiratory infection; I50.9 Heart failure, unspecified; I25.10 Atherosclerotic heart disease of native coronary artery without angina pectoris; I11.0 Hypertensive heart disease with heart failure; I25.119 Atherosclerotic heart disease of native coronary artery with unspecified angina pectoris; E78.5 Hyperlipidemia, unspecified; I35.0 Nonrheumatic aortic (valve) stenosis; I27.20 Pulmonary hypertension, unspecified; N18.9 Chronic kidney disease, unspecified; M81.0 Age-related osteoporosis without current pathological fracture; N40.0 Benign prostatic hyperplasia without lower urinary tract symptoms; E11.42 Type 2 diabetes mellitus with diabetic polyneuropathy; Z86.73 Personal history of transient ischemic attack (TIA), and cerebral infarction without residual deficits; Z86.711 Personal history of pulmonary embolism; Z86.718 Personal history of other venous thrombosis and embolism; Z87.11 Personal history of peptic ulcer disease; Z87.442 Personal history of urinary calculi; Z87.891 Personal history of nicotine dependence; Z87.440 Personal history of urinary (tract) infections; Z91.19 Patient's noncompliance with other medical treatment and regimen; Z95.5 Presence of coronary angioplasty implant and graft; E11.22 Type 2 diabetes mellitus with diabetic chronic kidney disease; F43.10 Post-traumatic stress disorder, unspecified; I25.2 Old myocardial infarction; E11.51 Type 2 diabetes mellitus with diabetic peripheral angiopathy without gangrene; R26.81 Unsteadiness on feet; M19.90 Unspecified osteoarthritis, unspecified site; Z68.32 Body mass index [BMI] 32.0-32.9, adult; G30.9 Alzheimer's disease, unspecified; F02.80 Dementia in other diseases classified elsewhere, unspecified severity, without behavioral disturbance, psychotic disturbance, mood disturbance, and anxiety
CPT/HCPCS: 36415; 36600; 71045-TC; 80048-TC; 80053-TC; 80076-TC; 82803-TC; 83540-TC; 83605-TC; 83735-TC; 83880; 84443-TC; 84484-TC; 85025-TC; 87040-TC; 87081-TC; 93307-TC; 93970-TC; 94799-TC; 97116-TC; 97530-TC; G0378; J0456; J0696; J1940; J2916; J2930; J3475; J7030; J7050; J7060